=== PATIENT | male | born 1955 | race Caucasian/White ===

== ENCOUNTER 2017-01-06 23:11 | Emergency (ER) | payer BC, OTHER ==
[~2017-01-06] VITALS: Ht 172.7 cm; Wt 85.0 kg
[~2017-01-06 23:11] MED LIST: ONDA4TAB46 PO; OXYC-81 PO; TAMS0.4C59 PO
[2017-01-06 23:14] VITALS: TEMP 36.4; Ht 172.7 cm; Wt 85.0 kg
[2017-01-06] MEDS ORDERED: DIPHTHERIA/TETANUS/PERTUSSIS 0.5 ML SYR/VIAL IM. ONE (23:45)
[2017-01-06] MEDS ORDERED: XYLOCAINE 1%/SOD BICARB 20 ML VIAL INFIL ONE (23:45)
[2017-01-07] MEDS ORDERED: AMOX875T PO (01:29)
[2017-01-07] MEDS ORDERED: AMOXICILLIN/CLAVULANATE TAB 875 MG TAB PO ONE (01:30)
[2017-01-07 01:39] VITALS: BP 137/86; PULSE 71; O2SAT 98
--- NOTE | 2017-01-07 06:28 | DIAGNOSTIC IMAGING REPORT ---
CT HEAD WITHOUT CONTRAST (CT) CLINICAL HISTORY: Head pain status post trauma COMPARISON STUDY: No previous studies for comparison. TECHNIQUE: Axial CT of the brain is performed from the vertex to the skull base. IV contrast was not administered for this examination. CT DOSE: FINDINGS: No intra or extra-axial mass lesions are visualized. There is no CT evidence of acute cortical infarction. There is no evidence of midline shift. There is no acute hemorrhage. No calvarial fractures are visualized. There is no evidence of pathologic ventricular dilatation. There is no evidence of acute sinusitis IMPRESSION: No acute intracranial findings Electronically signed by: Aneudy Toth M.D. 01/07/2017 6:27 AM Dictated Date/Time: 01/07/2017 6:26 AM
--- NOTE | 2017-01-07 06:30 | DIAGNOSTIC IMAGING REPORT ---
CT FACIAL BONES-MXILLOFAC WITHOUT CT DOSE: CLINICAL HISTORY: Facial pain status post trauma COMPARISON STUDY: No previous studies for comparison. TECHNIQUE: Helical images were acquired in the transverse plane. The study was reviewed and analyzed on the independent 3-D workstation. The pterygoid plates appear intact. The zygomatic arches appear intact. The globes appear intact. There is no evidence of orbital emphysema. The orbital altamirano and floor appear intact. There are polypoid mucosal changes in the right maxillary sinus. There are few sclerotic lesions within the right maxilla, finding of doubtful acute clinical significance. There is minimal mucosal thickening within the ethmoid and sphenoid sinuses. The mandibular condyles appear intact. IMPRESSION: No facial fractures identified. Electronically signed by: Aneudy Toth M.D. 01/07/2017 6:29 AM Dictated Date/Time: 01/07/2017 6:27 AM
--- NOTE | 2017-01-07 06:32 | DIAGNOSTIC IMAGING REPORT ---
CT OF THE CERVICAL SPINE CLINICAL HISTORY: Neck pain status post trauma COMPARISON STUDY: No previous studies for comparison. CT DOSE: 1600.57 mGy.cm TECHNIQUE: CT scan of the cervical spine was performed from the skull base to the thoracic inlet. Images are reviewed in the axial, sagittal, and coronal planes. IV contrast was not administered for this examination. FINDINGS: The visualized portions of the lung apices reveal no evidence of pneumothorax. The prevertebral soft tissues are normal. No fractures or subluxations are visualized. There are multilevel degenerative changes, most pronounced the C5-6 level. IMPRESSION: No evidence of acute fracture or traumatic subluxation. Electronically signed by: Aneudy Toth M.D. 01/07/2017 6:31 AM Dictated Date/Time: 01/07/2017 6:29 AM
--- NOTE | 2017-01-07 21:52 | EMERGENCY ROOM VISIT NOTE ---
History First contact with patient: 23:41 Chief Complaint: LACERATION/CUT (SUT/DERMABOND) Stated Complaint: SPLIT LIP AND NOSE INJURY History of Present Illness The patient is a 61 year old male who presents to the Emergency Room with complaints of fall 2 episodes today. The falls were witnessed, and the patient did suffer an injury to his lip and jaw with the last fall. The patient has been drinking heavily tonight, and is unsteady with his gait. The falls appear to be mechanical in nature. The patient does not take medication on a regular basis and rates his discomfort a 0/10. The patient is unsure of his tetanus status. Review of Systems More than 10 systems were reviewed and otherwise negative with the exception of history of present illness. Past Medical/Surgical History No chronic medical disease Family History No pertinent family history Social History Smoking Status: Never Smoker Alcohol Use: heavy Housing Status: lives with family Current/Historical Medications Scheduled Amoxicillin & Pot Clavulanate (Augmentin 875-125 mg), 1 TAB PO BID Allergies Coded Allergies: No Known Allergies (Unverified , ., 01/06/17) Physical Exam Vital Signs Date Time Temp Pulse Resp B/P Pulse Ox O2 Delivery O2 Flow Rate FiO2 01/07/17 01:39 71 18 137/86 98 01/06/17 23:14 36.4 73 20 147/82 100 Room Air Pain Rating (0-10): 0 Physical Exam VITALS: Vitals are noted on the nurse's note and reviewed by myself. Vital signs stable. GENERAL: Well-developed, well-nourished, white male who appears intoxicated but cooperative. HEAD: Normocephalic atraumatic. EARS: External ear normal. External auditory canals clear, tympanic membranes pearly adams without erythema or effusion bilaterally. EYES: Pupils equal round and reactive to light and accommodation. Conjunctivae without injection, sclerae without icterus. Extraocular movements intact. NOSE: Superficial abrasion to the perinasal area. There is dried blood in the bilateral nares without septal hematoma. MOUTH: Mucous membranes moist. Tonsils are not enlarged. Pharynx without erythema, blood, or exudate. Uvula midline. Airway patent. Dentition appears intact. There is a macerated stellate 3.5 cm laceration to the lower lip that appears from the upper teeth. This does not cross the vermilion border but is a through and through laceration. NECK: Supple without nuchal rigidity. No lymphadenopathy. No thyromegaly. Cervical spine is nontender. HEART: Regular rate and rhythm without murmurs gallops or rubs. LUNGS: Clear to auscultation bilaterally without wheezes, rales or rhonchi. No retractions or accessory muscle use. ABDOMEN: Positive normal bowel sounds x 4. Soft, nontender, without masses or organomegaly. No guarding or rebound tenderness. MUSCULOSKELETAL: No muscle atrophy, erythema, or edema noted. Full range of motion without joint tenderness in all extremities. NEURO: Patient was alert and appearing intoxicated. GCS 15. Medical Decision & Procedures ER Provider Diagnostic Interpretation: CT HEAD WITHOUT CONTRAST (CT) CLINICAL HISTORY: Head pain status post trauma COMPARISON STUDY: No previous studies for comparison. TECHNIQUE: Axial CT of the brain is performed from the vertex to the skull base. IV contrast was not administered for this examination. CT DOSE: FINDINGS: No intra or extra-axial mass lesions are visualized. There is no CT evidence of acute cortical infarction. There is no evidence of midline shift. There is no acute hemorrhage. No calvarial fractures are visualized. There is no evidence of pathologic ventricular dilatation. There is no evidence of acute sinusitis IMPRESSION: No acute intracranial findings CT OF THE CERVICAL SPINE CLINICAL HISTORY: Neck pain status post trauma COMPARISON STUDY: No previous studies for comparison. CT DOSE: 1600.57 mGy.cm TECHNIQUE: CT scan of the cervical spine was performed from the skull base to the thoracic inlet. Images are reviewed in the axial, sagittal, and coronal planes. IV contrast was not administered for this examination. FINDINGS: The visualized portions of the lung apices reveal no evidence of pneumothorax. The prevertebral soft tissues are normal. No fractures or subluxations are visualized. There are multilevel degenerative changes, most pronounced the C5-6 level. IMPRESSION: No evidence of acute fracture or traumatic subluxation. CT FACIAL BONES-MXILLOFAC WITHOUT CT DOSE: CLINICAL HISTORY: Facial pain status post trauma COMPARISON STUDY: No previous studies for comparison. TECHNIQUE: Helical images were acquired in the transverse plane. The study was reviewed and analyzed on the independent 3-D workstation. The pterygoid plates appear intact. The zygomatic arches appear intact. The globes appear intact. There is no evidence of orbital emphysema. The orbital altamirano and floor appear intact. There are polypoid mucosal changes in the right maxillary sinus. There are few sclerotic lesions within the right maxilla, finding of doubtful acute clinical significance. There is minimal mucosal thickening within the ethmoid and sphenoid sinuses. The mandibular condyles appear intact. IMPRESSION: No facial fractures identified. Medications Administered Medications (Trade) Dose Ordered Sig/Selma Route Start Time Stop Time Status Last Admin Dose Admin Diphtheria/ Pertussis/Tetanus Vacc (Adacel Inj) 0.5 ml ONCE ONCE IM. 01/06/17 23:45 01/06/17 23:46 DC 01/07/17 00:16 0.5 ML Amoxicillin/ Clavulanate Potassium (Augmentin Tab) 875 mg NOW ONCE PO 01/07/17 01:30 01/07/17 01:31 DC 01/07/17 01:30 875 MG Procedure Laceration repair. Patient elects to have their laceration repaired. Verbal consent was obtained to perform the procedure. There is an abundance of materials available for the procedure. Patient is not allergic to latex. Using sterile technique the wound was cleaned with Betadine. The area was sterilely draped. 4 ml of 1% buffered lidocaine was used to anesthetize the lip laceration. Once the patient was anesthetized, the wound was copiously irrigated under pressure with sterile saline. The wound was explored and there were no deep structures injured such as tendons, bone, or significant blood vessels. The laceration was repaired using 8 simple interrupted 5-0 Vicryl sutures with the wound edges being well approximated. Hemostasis was achieved. The area was cleaned with sterile saline and dressed with bacitracin ointment and bandage. The patient was given a tetanus booster. Patient tolerated the procedure well without complications. Blood loss was negligible. ED Course Physical exam and history were performed. Nursing notes and EMR were reviewed. Patient appears to have suffered 2 falls today, both of which appear mechanical secondary to alcohol intoxication. The patient is quite pleasant and does answer questions appropriately. He was given a tetanus here in the department. Because of his injuries and intoxication status I did elect perform CT scans of the head, neck, and face. These were performed as above and are without acute findings. His laceration was repaired as above, which he tolerated well. Overall the patient was in the department for several hours and did not have any deterioration of his condition. He is felt well for discharge home and does have several sober family members here that are willing to take as possibility for him. The patient is to follow-up with his primary care physician and was otherwise invited back to the ER for any new, worsening, or concerning symptoms. The chart was completed utilizing [employer] Speech Voice Recognition Software. Grammatical errors, random word insertions, pronoun errors, and incomplete sentences are an occasional consequence of this system due to software limitations, ambient noise, and hardware issues. Any formal questions or concerns about the content, text, or information contained within the body of this dictation should be directly addressed to the provider for clarification. . Medical Decision Differential diagnosis: Etiologies such as alcohol intoxication, laceration, concussion, contusion, fracture, subdural hematoma, epidural hematoma, intraparenchymal hemorrhage, as well as other traumatic pathologies were entertained. Impression Primary Impression: Fall Additional Impressions: Alcohol intoxication Lip laceration Facial injury Departure Information Dispostion Home / Self-Care Condition GOOD Prescriptions Amoxicillin & Pot Clavulanate (Augmentin 875-125 mg) 1 Tab Tab 1 TAB PO BID for 7 Days, #14 TAB Prov: Ashish River PA-C 01/07/17 Forms HOME CARE DOCUMENTATION FORM, IMPORTANT VISIT INFORMATION Patient Instructions My [facility], ED Scar Tips to Minimize Additional Instructions You were seen and evaluated today on an emergency basis only. This is not a substitute for, or an effort to provide, complete comprehensive medical care. It is not possible to recognize and treat all injuries or illnesses in a single emergency department visit. For this reason it is recommended that you followup with your primary care physician this week for ongoing care and evaluation. Amoxicillin Clavulanate (Augmentin) 875mg: Take one pill twice daily for 7 days for your infection. All antibiotics can cause diarrhea. If this occurs and you feel worse or it does not resolve in 1-2 days follow up with your doctor or return to the Emergency Department as this could be signs of serious underlying problems. Any medication can cause an allergic reaction, stop the pills immediately and return to the ER for rash, hives, breathing difficulties, or swelling. You have 8 dissolvable stitches in your lip. These should dissolve over the next 1-2 weeks. You are welcome to return to the emergency department anytime with new, worsening, or concerning symptoms. Problem Qualifiers
== END 2017-01-07 01:40 | disposition home or self-care (01) ==
LOC: C.EDB 23:12
DX: S01.511A Laceration without foreign body of lip, initial encounter (principal); W19.XXXA Unspecified fall, initial encounter; F10.129 Alcohol abuse with intoxication, unspecified; Z23 Encounter for immunization; Y90.9 Presence of alcohol in blood, level not specified

== ENCOUNTER → 2017-01-19 | Outpatient (CLI) | payer OTHER | END | disposition home or self-care (01) | LOC: C.LAB 22:56 | DX: Z02.83 Encounter for blood-alcohol and blood-drug test (principal) ==

== ENCOUNTER 2017-01-30 16:47 | Emergency (ER) | payer OTHER ==
[~2017-01-30] VITALS: Ht 175.3 cm; Wt 77.1 kg
[2017-01-30 16:49] VITALS: BP 143/83; PULSE 76; TEMP 36.4; O2SAT 94; Ht 175.3 cm; Wt 77.1 kg
--- NOTE | 2017-01-30 18:42 | EMERGENCY ROOM VISIT NOTE ---
ED Visit Note First contact with patient: 17:44 CHIEF COMPLAINT: Removal of sutures HISTORY OF PRESENT ILLNESS: This 61-year-old male patient presents to the emergency department for removal of sutures from their lower lip. The sutures were placed approximately 3-4 weeks ago. He states that he was told the sutures should dissolve, but they have not. There have been no signs of infection. The patient denies any pain. REVIEW OF SYSTEMS: A review of systems was performed with positives and pertinent negatives listed in the history of present illness. All other systems were reviewed and are negative. ALLERGIES: No known drug allergies MEDICATIONS: Unchanged from previous visit. PMH: Unchanged from previous visit. SOCIAL HISTORY: The patient lives locally with family. PHYSICAL EXAM: VITALS: Vitals are noted on the nurse's note and reviewed by myself. Vital signs stable. GENERAL: This is a 61-year-old male, in no acute distress, nondiaphoretic, well- developed well-nourished. SKIN: There is a well-healing sutured wound on the left lower lip with no signs of infection. EMERGENCY DEPARTMENT COURSE: The patient was evaluated as above. Sutures were removed from the lower lip with no dehiscence. There is no evidence of infection. Scar reduction measures were discussed the the patient. They verbalized understanding and were discharged home in good condition. DIAGNOSIS: Encounter for suture removal Current/Historical Medications Unable to Obtain Active Prescriptions or Reported Meds Allergies Coded Allergies: No Known Allergies (Unverified , ., 01/06/17) Vital Signs Date Time Temp Pulse Resp B/P Pulse Ox O2 Delivery O2 Flow Rate FiO2 01/30/17 16:49 36.4 76 18 143/83 94 Room Air Departure Information Impression Primary Impression: Encounter for removal of sutures Dispostion Home / Self-Care Condition GOOD Prescriptions Unable to Obtain Active Prescriptions or Reported Meds Referrals No Doctor, Assigned (PCP) Forms HOME CARE DOCUMENTATION FORM, IMPORTANT VISIT INFORMATION Patient Instructions [facility] [employer]
== END 2017-01-30 17:55 | disposition home or self-care (01) ==
LOC: C.EDB 16:48 → C.EDD 17:55
DX: S01.511D Laceration without foreign body of lip, subsequent encounter (principal); X58.XXXD Exposure to other specified factors, subsequent encounter